=== PATIENT | male | born 1955 | race Caucasian/White ===

== ENCOUNTER 2016-07-06 07:23 | Day surgery (SDC) | payer OTHER ==
[2016-07-06] MEDS ORDERED: D5 LR 1000 ML 1,000 ML IV ONE (07:56)
[2016-07-06] MEDS ORDERED: DIPRIVAN VIAL 20 ML ONE (09:25)
[2016-07-06] MEDS ORDERED: DIPRIVAN VIAL 10 ML ONE (09:42)
[2016-07-06 12:00] VITALS: BP 124/76
== END 2016-07-06 10:15 | disposition home or self-care (01) ==
LOC: SURG1 07:23
PROVIDERS: ATTEND Internal Medicine Gastroenterology
PROC: 0DBP8ZX Excision of Rectum, Via Natural or Artificial Opening Endoscopic, Diagnostic (ICD-10-PCS; principal; 2016-07-06 09:00)
PROC: 0DJD8ZZ Inspection of Lower Intestinal Tract, Via Natural or Artificial Opening Endoscopic (ICD-10-PCS; principal; 2016-07-06 09:00)
DX: Z12.11 Encounter for screening for malignant neoplasm of colon (principal); K92.1 Melena; K63.5 Polyp of colon; K57.30 Diverticulosis of large intestine without perforation or abscess without bleeding; K64.0 First degree hemorrhoids
CPT/HCPCS: A4217; J3490; J7120